=== PATIENT | female | born 1975 | race Caucasian/White ===

== ENCOUNTER 2018-10-03 00:43 | Outpatient (CLI) | payer MEDICAID, SELFPAY | END 2018-10-03 01:03 | PROVIDERS: PCP Family Medicine; Visit Provider Family Medicine | DX: R69 Illness, unspecified (principal) ==

== ENCOUNTER 2018-10-03 08:23 | Outpatient (REF) | payer MEDICAID, SELFPAY ==
[2018-10-03 13:17] LABS: Glucose 96 mg/dL (70-100); TSH (W/Ref FT4) 1.84 uIU/mL (0.36-3.74)
[2018-10-03 13:39] LABS: Hemoglobin A1C 5.3 % (4.5-6.2)
== END 2018-10-03 08:43 ==
LOC: NCHCN 08:23
PROVIDERS: PCP Family Medicine; Visit Provider Family Medicine
DX: Z00.00 Encounter for general adult medical examination without abnormal findings (principal); Z86.32 Personal history of gestational diabetes
CPT/HCPCS: 82947; 83036; 84443

== ENCOUNTER 2019-10-29 15:08 | Outpatient (REF) | payer MEDICAID, SELFPAY ==
[2019-10-31 22:00] LABS: SARS-CoV-2 RNA Undetected (Undetected); SARS-CoV-2 Specimen Source Nasopharynx
== END 2019-10-29 15:28 ==
LOC: NCHCN 15:08
PROVIDERS: PCP Family Medicine; Visit Provider Nurse Practitioner Family
DX: Z20.828 Contact with and (suspected) exposure to other viral communicable diseases (principal)
CPT/HCPCS: U0003

== ENCOUNTER 2021-01-07 15:12 | Outpatient (REF) | payer MEDICAID, SELFPAY ==
--- NOTE | 2021-01-07 13:30 | PAPFT_PTH ---
PATIENT: Mell Johnson LOC: [facility]#:[id number] AGE/SX: 45/F ROOM: RE01/07/[address]: Kaela Randall : 1975 BED: DIS: 01/07/2021 SPEC #: [id number] RECD: 01/08/21 12:56 STATUS: KHADRA RENeli #: [id number] CARSON: 01/07/21 13:[address]: Kaela Randall DEPT: [facility] Cytology RECD BY: Lizbeth Melissa Tissues: 1 - CX/ENDOCX FOR PAP SMEARS Procedures: PAP THIN PREP/[facility] Screening HPV DNA PROBE Comments: [id number]
[2021-01-07 20:19] LABS: Hemoglobin A1C 5.2 % (<5.7)
[2021-01-07 20:21] LABS: Anion Gap 8.6 mmol/L (3-11); BUN 12 mg/dL (7-18); CO2 27.4 mmol/L (21.0-32.0); Calcium 9.4 mg/dL (8.5-10.1); Calculated LDL 109 mg/dL (<100); Chloride 106 mmol/L (98-107); Cholesterol 193 mg/dL (<200); Estimated GFR 59.43 (mL/min/1.73m2); Glucose 94 mg/dL (74-106); HDL Cholesterol 42 mg/dL (40-60); Potassium 3.9 mmol/L (3.5-5.1); Sodium 142 mmol/L (136-145); Triglyceride 212 mg/dL (<150)
== END 2021-01-07 15:13 | disposition home or self-care (01) ==
LOC: NCHCN 15:12
PROVIDERS: PCP Family Medicine; Visit Provider Family Medicine
DX: F32.9 Major depressive disorder, single episode, unspecified (principal); Z13.1 Encounter for screening for diabetes mellitus; Z13.220 Encounter for screening for lipoid disorders; Z00.00 Encounter for general adult medical examination without abnormal findings; Z12.4 Encounter for screening for malignant neoplasm of cervix; Z01.419 Encounter for gynecological examination (general) (routine) without abnormal findings; Z11.51 Encounter for screening for human papillomavirus (HPV)
CPT/HCPCS: 80048; 80061; 88142; 83036; 87624

== ENCOUNTER 2021-05-19 01:07 | Outpatient (CLI) | payer MEDICAID, SELFPAY ==
--- NOTE | 2021-05-19 11:40 | DI.MAMMO_ITS ---
Exam(s) MAMMO SCREENING EXAM: MAMMO SCREENING CLINICAL HISTORY: SCREENING FOR BREAST CANCER Z12.39. TECHNIQUE: Bilateral full field digital CC and MLO mammographic images were obtained with 3D tomosyn thesis and utilizing computer aided detection (CAD). COMPARISON: Prior mammograms were reviewed, the most recent being 2017. Ultrasound 2017 also review ed. FINDINGS: Fibroglandular tissue pattern is again noted be moderately dense, this somewhat decreasing the sensit ivity of the mammogram for finding hidden underlying lesions. No new spiculated masses in either breast. Right breast on the MLO view there is a group of microcalcifications located 10 cm in from the nipple , not evident on prior study and requiring Mag views. These microcalcifications are located medially on the CC view, 11 cm in from the nipple on the CC view. There is no significant architectural distortion nor skin thickening-retraction. IMPRESSION: 1. No radiographic evidence of malignancy in left breast 2. There is a microcalcification group located in the right breast as described above. Spot compress ion 2D cc, MLO, and straight lateral views recommended. BI-RADS Category 0 - Assessment Incomplete: Need additional imaging evaluation Breast Density - Category C - Heterogeneously dense Breast density Category C or D implies that the patient has dense breast tissue. Dense breast tissue can make it harder to find cancer on a mammogram. Dense breast tissue is also associated with an incr eased risk of breast cancer. This information about the result of the mammogram report was provided to the patient to raise their awareness. Use this report when you speak with the patient about their risks for breast cancer, which includes their family history. At that time, you may recommend additional screening tests (Ultrasoun d or MRI) as these tests may add significant information. A negative radiographic report should not delay biopsy if a dominant or clinically suspicious mass is present. Up to ten percent of cancers are not identified on mammography. A negative report may reinforce clinical impression. Adenosis and dense breasts may obscure an underlying neoplasm. False positive reports average 6 to 10%. Patient will receive a letter notifying them of these results.
== END 2021-05-19 01:27 ==
PROVIDERS: PCP Family Medicine; Visit Provider Family Medicine
DX: Z12.31 Encounter for screening mammogram for malignant neoplasm of breast (principal); R92.8 Other abnormal and inconclusive findings on diagnostic imaging of breast
CPT/HCPCS: 77063; 77067

== ENCOUNTER 2021-06-08 01:06 | Outpatient (CLI) | payer MEDICAID, SELFPAY ==
--- NOTE | 2021-06-08 09:53 | DI.MAMMO_ITS ---
Exam(s) MAMMO SCREEN CALL BACK UNI EXAM: MAMMO SCREEN CALL BACK UNI CLINICAL HISTORY: F/U ABNL MAMMO, MICROCALCIFICATIONS 10 CM FROM NIPPLE TECHNIQUE: Spot compression magnification views in CC, MLO and mL projections COMPARISON: 2016 and 19 May 2021 FINDINGS: Magnification views spots show a cluster of punctate, uniform calcifications in the medial, posterior right breast slightly above the level of the nipple on the mL view. There are no suspicious feature s. No architectural distortion. . IMPRESSION: BI-RADS Cat 3 - 6 month - Probably Benign Finding: Recommend follow-up right mammogram in 6 months . Breast Density - Category C - Heterogeneously dense.
== END 2021-06-08 01:26 ==
PROVIDERS: PCP Family Medicine; Visit Provider Family Medicine
DX: Z12.31 Encounter for screening mammogram for malignant neoplasm of breast (principal); R92.8 Other abnormal and inconclusive findings on diagnostic imaging of breast; N60.81 Other benign mammary dysplasias of right breast
CPT/HCPCS: 77063; 77067